=== PATIENT | female | born 1970 | race Caucasian/White ===

== ENCOUNTER 2017-09-17 13:38 | Day surgery (SDC) | payer BC ==
[~2017-09-17] VITALS: Ht 152.4 cm; Wt 117.6 kg
[~2017-09-17 13:38] MED LIST: ESCI10; Omeprazole20 M1; ZYRTEC10 MG
== END 2017-09-17 15:16 | disposition home or self-care (01) ==
LOC: ORSCSDS 13:38
PROVIDERS: Anesthesiology
PROC: 3E0R33Z Introduction of Anti-inflammatory into Spinal Canal, Percutaneous Approach (ICD-10-PCS; principal; 2017-09-17 15:00)
DX: M51.16 Intervertebral disc disorders with radiculopathy, lumbar region (principal); E66.01 Morbid (severe) obesity due to excess calories; Z68.43 Body mass index [BMI] 50.0-59.9, adult; F17.210 Nicotine dependence, cigarettes, uncomplicated; Z79.899 Other long term (current) drug therapy
CPT/HCPCS: J1040

== ENCOUNTER 2019-07-28 10:19 | Day surgery (SDC) | payer BC ==
[~2019-07-28] VITALS: Ht 152.4 cm; Wt 115.3 kg
[2019-07-28] MEDS ORDERED: Phentermine HCl15 MG PO (10:48)
== END 2019-07-28 11:36 | disposition home or self-care (01) ==
LOC: ORSCSDS 10:19
PROVIDERS: Anesthesiology
PROC: 3E0R33Z Introduction of Anti-inflammatory into Spinal Canal, Percutaneous Approach (ICD-10-PCS; principal; 2019-07-28 12:45)
DX: M51.16 Intervertebral disc disorders with radiculopathy, lumbar region (principal); F32.9 Major depressive disorder, single episode, unspecified; K21.9 Gastro-esophageal reflux disease without esophagitis; G47.33 Obstructive sleep apnea (adult) (pediatric); E66.01 Morbid (severe) obesity due to excess calories; Z68.42 Body mass index [BMI] 45.0-49.9, adult; Z79.899 Other long term (current) drug therapy
CPT/HCPCS: J1040

== ENCOUNTER → 2020-04-29 | Outpatient (CLI) | payer BC ==
[~2020-04-29] MED LIST changes: +Phentermine HCl15 MG PO
== END ==
LOC: PLD 14:41 → LAB SHORT 14:41
DX: R21 Rash and other nonspecific skin eruption (principal)
CPT/HCPCS: 88312

== ENCOUNTER 2021-09-11 20:49 | Emergency (ER) | payer OTHER, BC ==
[~2021-09-11] VITALS: Ht 162.6 cm; Wt 79.4 kg
[2021-09-11] MEDS ORDERED: Voltaren100 GM TOP (21:39)
[2021-09-11] MEDS ORDERED: CYCLOBENZAPRINE5 MG PO (21:39)
== END 2021-09-11 21:55 | disposition home or self-care (01) ==
LOC: ER 20:49
DX: S16.1XXA Strain of muscle, fascia and tendon at neck level, initial encounter (principal); X58.XXXA Exposure to other specified factors, initial encounter
CPT/HCPCS: 99284; A9270